=== PATIENT | female | born 1980 | race Caucasian/White ===

== ENCOUNTER 2017-07-17 10:23 | Inpatient (IN) | payer BC, OTHER ==
[~2017-07-17] VITALS: Ht 172.7 cm; Wt 54.4 kg
[2017-07-17] MEDS ORDERED: ONDANSETRON ODT 4 MG TAB.RAPDIS SL PRN (19:00)
[2017-07-17] MEDS ORDERED: MAG HYDROX/AL HYDROX/SIMETH 30 ML LIQUID UDC PO PRN (19:00)
[2017-07-17] MEDS ORDERED: THIAMINE HCL 200 MG/2 ML VIAL IM ONE (19:00)
[2017-07-17] MEDS ORDERED: LORAZEPAM 2 MG/1 ML VIAL IM PRN (19:00)
[2017-07-17] MEDS ORDERED: MAGNESIUM HYDROXIDE 30 ML LIQUID UDC PO PRN (19:00)
[2017-07-17] MEDS ORDERED: MIRALAX 17 GM POWD.PACK PO PRN (19:00)
[2017-07-17] MEDS ORDERED: CLONIDINE HCL 0.1 MG TABLET PO PRN (19:00)
[2017-07-17] MEDS ORDERED: ACETAMINOPHEN 325 MG TABLET PO PRN (19:00)
[2017-07-17] MEDS ORDERED: ONDANSETRON 4 MG/2 ML VIAL IM PRN (19:00)
[2017-07-17] MEDS ORDERED: IBUPROFEN 400 MG TABLET PO PRN (19:00)
[2017-07-17] MEDS ORDERED: DICYCLOMINE HCL 20 MG TABLET PO PRN (19:00)
[2017-07-17] MEDS ORDERED: LORAZEPAM 1 MG TABLET PO PRN (19:00)
[2017-07-17] MEDS ORDERED: LOPERAMIDE HCL 2 MG CAPSULE PO PRN ×2 (19:00)
--- NOTE | 2017-07-17 19:45 | NUR ---
INTAKE ASSESSMENT PT ASSESSED IN INTAKE.SHE IS A/A/O X 4.STATED THAT SHE IS HERE BECAUSE SHE WANTS TO STOP DRINKING ALCOHOL.PT HAS BEEN DRINKING WINE ON A DAILY BASIS FOR APPROXIMATELY 4 YEARS.HER LAST DRINK WAS 2 HOURS PRIOR TO ARRIVAL.PT PRESENTED WITH ANXIETY AND NERVOUSNESS.SAID THAT THIS IS HER FIRST TIME IN [place].B/P=130/92,HR=80,T=97.6,R=16,O2 SAT= 97%.SPEECH IS CLEAR,GAIT IS STEADY.PT IS IN A STABLE CONDITION TO PROCEED TO [facility].
[2017-07-17 19:57] LABS: BASOPHILS # (AUTO) 0.1 K/uL (0.0-8.0); BASOPHILS % (AUTO) 0.8 % (0.0-2.0); EOSINOPHILS # (AUTO) 0.2 K/uL (0.0-0.7); EOSINOPHILS % (AUTO) 3.2 % (0.0-7.0); HEMATOCRIT 41.2 % (31.2-41.9); LYMPHOCYTES # (AUTO) 3.3 K/uL (20.0-40.0); LYMPHOCYTES % (AUTO) 46.5 % (20.5-51.5); MEAN CORPUSCULAR HEMOGLOBIN 30.6 uug (24.7-32.8); MEAN CORPUSCULAR HGB CONC 34 g/dL (32.3-35.6); MONOCYTES # (AUTO) 0.6 K/uL (2.0-10.0); MONOCYTES % (AUTO) 8.7 % (0.0-11.0); NEUTROPHILS # (AUTO) 2.9 K/uL (1.8-8.9); NEUTROPHILS % (AUTO) 40.8 % (38.5-71.5); PLATELET COUNT (AUTO) 266 K/uL (179-408); RED BLOOD CELL COUNT(AUTO) 4.58 MIL/uL (3.63-4.92); WHITE BLOOD COUNT (AUTO) 7.1 K/uL (3.8-11.8)
[2017-07-17 20:13] LABS: BILIRUBIN,TOTAL 1.6 mg/dL (0.2-1.0); CREATININE 0.7 mg/dL (0.6-1.3); MAGNESIUM 2.2 mg/dL (1.8-2.4); POTASSIUM 4.3 mmol/L (3.5-5.1); TOTAL PROTEIN, SERUM 8.5 g/dL (6.4-8.2)
[2017-07-17] MEDS ORDERED: ESCI5TAB PO (20:25)
[2017-07-17] MEDS ORDERED: GABA-534 PO (20:26)
[2017-07-17] MEDS ORDERED: ZOLP10TA2 PO (20:27)
--- NOTE | 2017-07-17 21:00 | NUR ---
ADMISSION NOTE HT=5 FEET, 8 INCHES. ZW=253 POUNDS. B/P=132/98,T=97.9,P=82,R=16,O2 SAT=98%. CIWA = 15 NKDA/NKFA ADMITTING 36 YEAR OLD FEMALE TO [facility] FOR MEDICALLY SUPERVISED WITHDRAWAL FROM ALCOHOL UNDER THE CARE OF DR BARAJAS AND DR HARGROVE.PT REPORTED THAT SHE BEGAN DRINKING WINE AT THE AGE OF 14 YEARS BUT WAS NOT DRINKING REGULARLY.SHE WAS DRINKING OFF AND ON AND DID NOT DRINK AT ALL DURING HER THREE PREGNANCIES AND BREAST FEEDING.SHE BEGAN DRINKING MORE OFTEN PROGRESSIVELY DUE TO BEING STRESSED OUT RAISING HER 4 CHILDREN WITHOUT ANY HELP.SHE IS UNABLE TO GIVE A DEFINITE PERIOD OF BEING SOBER.SHE HAS BEEN DRINKING 750 TO 1500 MLS OF WINE ON A DAILY BASIS FOR APPROXIMATELY 4 YEARS,HER YOUNGEST TWIN SONS ARE 4 YEARS OLD.SHE LIVES IN [place] WITH HER FAMILY.SHE HAS 4 CHILDREN,AGES 12,9 AND 4. PT DENIES ANY ALLERGIES OR MEDICAL PROBLEMS.SHE HAS HX OF ANXIETY AND INSOMNIA.TAKES AMBIEN FOR INSOMNIA.PT ALSO STATED SHE HAD A SEIZURE ONLY ONE TIME AND THAT WAS 7 YEARS AGO. PT IS A/A/O X 4.SKIN IS INTACT,WARM AND DRY TO TOUCH;BREATHING IS EVEN AND NON LABORED;NO S/S OF SOB NOTED.ABDOMEN IS SOFT AND PALPABLE WITH B/S PRESENT X 4.NO C/O N/V/D NOTED.PT DENIES ANY A/H,V/H,S/I OR H/I.PT ORIENTED TO ROOM AND UNIT,CARE PLAN AND SAFETY CHECKS INITIATED.SNACK AND FLUIDS PROVIDED.PT ENCOURAGED TO INCREASE PO FLUIDS TOLERATED.EDUCATION MATERIAL PROVIDED.ALL SAFETY MEASURES ARE IN PLACE PER HOSPITAL POLICY,BED IS LOCKED IN THE LOWEST POSITION WITH SIDE RAILS UP AND PADDED X 2.PT STATED THAT THIS IS HER FIRST TIME IN [place].HER PCP IS DR MARIBELL FRASER.'S NOTIFIED OF ADMISSION.WILL CONTINUE TO MONITOR FOR SAFETY AND MEDICATE PER ORDERS.
[2017-07-17 21:16] LABS: *URINE HCG, QUAL NEGATIVE (NEGATIVE)
[2017-07-17 21:29] LABS: *AMPHETAMINE, URINE NEGATIVE (NEGATIVE); *BARBITURATE, URINE NEGATIVE (NEGATIVE); *CANNABINOID, URINE NEGATIVE (NEGATIVE); *COCCAINE, URINE NEGATIVE (NEGATIVE); *OPIATE, URINE NEGATIVE (NEGATIVE); *PHENCYCLIDINE SCREEN,URINE NEGATIVE (NEGATIVE)
[2017-07-17] MEDS ORDERED: LORAZEPAM 1 MG TABLET PO SCH (22:00)
--- NOTE | 2017-07-17 22:30 | NUR ---
PEPE BENADRYL IS EFFECTIVE.PT IS SLEEPING AT THIS TIME.BREATHING IS EVEN AND NON LABORED,NO S/S OF DISTRESS NOTED. Addendum: 07/18/17 at 0206 by JUNIE DÍAZ RN CHARTING ERROR.
[2017-07-17] MEDS: diphenhydrAMINE 50 MG CAPSULE PO PRN (22:32)
--- NOTE | 2017-07-17 22:32 | NUR ---
PRN BENADRYL GIVEN FOR C/O INSOMNIA.WILL MONITOR.
[2017-07-17] MEDS ORDERED: THIAMINE HCL 200 MG/2 ML VIAL ONE (23:11)
--- NOTE | 2017-07-17 23:30 | NUR ---
PRN BENADRYL IS EFFECTIVE.PT IS SLEEPING AT THIS TIME.BREATHING IS EVEN AND NON LABORED,NO S/S OF DISTRESS NOTED.
[2017-07-18] VITALS: BP 120/89
--- NOTE | 2017-07-18 | NUR ---
CIWA ASSESSMENT DEFERRED DUE TO PT BEING ASLEEP.BREATHING IS EVEN AND NONLABORED.ALL SAFETY MEASURES IN PLACE WITH CALL LIGHT WITHIN REACH,WILL CONTINUE TO MONITOR.
[2017-07-18] MEDS: LORAZEPAM 1 MG TABLET PO PRN ×2 (00:56→18:35)
--- NOTE | 2017-07-18 00:58 | NUR ---
PRN ATIVAN 1 MG PO GIVEN FOR CIWA 7.WILL MONITOR FOR EFFECTIVENESS.
--- NOTE | 2017-07-18 02:00 | NUR ---
PRN REASSESSMENT UNABLE TO ASSESS FOR CIWA AT THIS TIME DUE TO PT BEING ASLEEP.WILL CONTINUE TO MONITOR.
[2017-07-18 04:00] VITALS: BP 115/84
--- NOTE | 2017-07-18 04:00 | NUR ---
CIWA DEFERRED CIWA ASSESSMENT DEFERRED DUE TO PT BEING ASLEEP.BREATHING IS EVEN AND NONLABORED.ALL SAFETY MEASURES IN PLACE WITH CALL LIGHT WITHIN REACH,WILL CONTINUE TO MONITOR.
--- NOTE | 2017-07-18 06:47 | NUR ---
END OF SHIFT PT IS 36 YEAR OLD FEMALE ADMITTED TO [facility] FOR MEDICALLY SUPERVISED WITHDRAWAL FROM ALCOHOL .SHE HAS BEEN DRINKING 750 TO 1500 MLS OF WINE ON A DAILY BASIS FOR APPROXIMATELY 4 YEARS.NKA,FULL CODE,REGULAR DIET.SHE HAS HX OF ANXIETY AND INSOMNIA.PT ALSO STATED SHE HAD A SEIZURE ONLY ONE TIME AND THAT WAS 7 YEARS AGO.PLACED ON FALL AND SEIZURE PRECAUTIONS.PT IS A/A/O X 4.ALL SAFETY MEASURES ARE IN PLACE PER HOSPITAL POLICY,BED IS LOCKED IN THE LOWEST POSITION WITH SIDE RAILS UP AND PADDED X 2.PRN BENADRYL AND ATIVAN WERE GIVEN AND WERE EFFECTIVE.CIWA ON ADMISSION WAS 15 AND LAST CIWA AT 0100 WAS 7.PT SLEPT 5 HRS,FLUID INTAKE WAS 500 MLS,VOIDED X 1 .WILL ENDORSE CARE TO DAY SHIFT NURSE.
--- NOTE | 2017-07-18 07:57 | NUR ---
START OF SHIFT Received report from night nurse, 36 year old female admitted for ETOH withdrawal. Patient cont with 4 days Ativan taper tolerating well. Per endorsement patient was given PRN Ativan 1mg and Benadryl effective per night nurse, slept for 5 hours, Last CIWA score was-7. Received patient anxious agitated, nauseated, restless. Patient stated "I am not feeling well my anxiety level is so high" Patient is due for schedule medications. Educated patient with current plan of care of medications regimen and importance of attending groups and activities with good verbal understanding. Safety measures in place. Will cont with plan of care.
[2017-07-18 08:00] VITALS: BP 115/81
[2017-07-18] MEDS: MULTIVITAMINS,THERAPEUTIC TABLET PO SCH (08:25)
[2017-07-18] MEDS: THIAMINE HCL 100 MG TABLET PO SCH (08:25)
[2017-07-18] MEDS: LORAZEPAM 1 MG TABLET PO SCH ×3 (08:25→20:49)
[2017-07-18] MEDS: FOLIC ACID 1 MG TABLET PO SCH (08:25)
[2017-07-18] MEDS ORDERED: TUBERCULIN,PURIF.PROT.DERIV. 5 TU/0.1 ML TEST ID ONE (09:00)
[2017-07-18] MEDS: ESCITALOPRAM OXALATE 10 MG TABLET PO SCH (09:34)
[2017-07-18] MEDS: GABAPENTIN 300MG CAPSULE PO SCH ×3 (10:05→20:49)
[2017-07-18 12:00] VITALS: BP 118/75
[2017-07-18 16:00] VITALS: BP 129/88
--- NOTE | 2017-07-18 18:35 | NUR ---
PRN ATIVAN CIWA score noted -10, patient reported increased anxiety, agitation, restless, light headed, bilateral hand tremors, sweats. PRN Ativan 1mg PO given as ordered. Will cont to monitor and reassess.
--- NOTE | 2017-07-18 19:05 | NUR ---
END OF SHIFT NOTE Gave report to night nurse, patient presented with anxiety, agitation, tremors, light headed, nausea. Patient was given scheduled medications. Patient also received PRN Ativan 1mg PO endorsed to night nurse to reassess the patient. Patient compliant with treatment and medications. Patient was seen by psychiatrist with new order to give Lexapro medication given as ordered patient tolerated well. Vital signs WNL. Encourage pt to develop coping skills and utilization of non pharmacological intervention. Patient attended groups and activities. Encourage diversional activities to alleviate anxiety. Patient denies any SI/HI. Safety measures in place. Patient endorsed to night nurse in stable condition.
--- NOTE | 2017-07-18 19:30 | NUR ---
START OF SHIFT PT IS 36 YEAR OLD FEMALE ADMITTED TO [facility] FOR MEDICALLY SUPERVISED WITHDRAWAL FROM ALCOHOL.PER REPORT PT WAS GIVEN ATIVAN 1 MG PO FOR ANXIETY.PT RECEIVED IN ROOM,SAID THAT ATIVAN IS HELPING HER FEEL RELAXED.STATES FEELING BETTER.PT IS A/A/O X 4.SHE IS PLEASANT ON APPROACH,ROOM IS CLEAN OF CLUTTER.ALL SAFETY MEASURES ARE IN PLACE PER HOSPITAL POLICY,BED IS LOCKED IN THE LOWEST POSITION WITH SIDE RAILS UP AND PADDED X 2.CONTINUES TO BE MONITORED FOR FALL/SEIZURE PRECAUTIONS.PT IS COOPERATIVE WITH MEDICATION REGIME.NO C/O PAIN NOTED.ILL CONTINUE TO MONITOR.
[2017-07-18 20:00] VITALS: BP 115/78
[2017-07-18] MEDS: diphenhydrAMINE 50 MG CAPSULE PO PRN (20:49)
--- NOTE | 2017-07-18 20:49 | NUR ---
PRN BENADRYL GIVEN ORDERED FOR C/O INSOMNIA.WILL MONITOR.
--- NOTE | 2017-07-18 21:50 | NUR ---
PRN BENADRYL IS EFFECTIVE.PT IS RESTING IN BED WITH EYES CLOSED,IN DEEP SLEEP.BREATHING IS EVEN AND NON LABORED,ALL SAFETY MEASURES IN PLACE,CALL LIGHT WITHIN REACH.WILL CONTINUE TO MONITOR.
[2017-07-19] VITALS: BP 116/75
--- NOTE | 2017-07-19 | NUR ---
CIWA DEFERRED DUE TO PT TERESITA IN DEEP SLEEP.UNABLE TO ASSESS AT THIS TIME.
[2017-07-19] MEDS: LORAZEPAM 1 MG TABLET PO PRN (01:20)
--- NOTE | 2017-07-19 01:21 | NUR ---
PRN ATIVAN 1 MG PO GIVEN FOR INCREASED ANXIETY,RESTLESSNESS,UNABLE TO GO BACK TO SLEEP.CIWA=6.WILL MONITOR FOR EFFECTIVENESS.
--- NOTE | 2017-07-19 02:20 | NUR ---
PRN MED IS EFFECTIVE.PT IS CALM AND RESTING WITH EYES CLOSED.
--- NOTE | 2017-07-19 04:00 | NUR ---
V/S REFUSED; CIWA DEFERRED. PT HAD REQUESTED EARLIER NOT TO BE WOKEN UP FOR V/S.PT OBSERVED TO BE RESTING IN DEEP SLEEP.BREATHING IS EVEN AND NON LABORED,NO S/S OF DISTRESS NOTED.CIWA DEFERRED D/T PT BEING ASLEEP. SAFETY MEASURES IN PLACE,CALL LIGHT WITHIN REACH.WILL BE MONITORED.
--- NOTE | 2017-07-19 06:40 | NUR ---
END OF SHIFT PT IS 36 YEAR OLD FEMALE ADMITTED TO [facility] FOR MEDICALLY SUPERVISED WITHDRAWAL FROM ALCOHOL. PT IS A/A/O X 4.SHE IS PLEASANT ON APPROACH,ROOM IS CLEAN OF CLUTTER.ALL SAFETY MEASURES ARE IN PLACE PER HOSPITAL POLICY,BED IS LOCKED IN THE LOWEST POSITION WITH SIDE RAILS UP AND PADDED X 2.CONTINUES TO BE MONITORED FOR FALL/SEIZURE PRECAUTIONS.PT IS COOPERATIVE WITH MEDICATION REGIME.PRN BENADRYL AND ATIVAN WERE GIVEN AND WERE EFFECTIVE. LAST CIWA WAS 6.PT SLEPT 8 HRS,FLUID INTAKE WAS 1000 MLS,VOIDED X 1, B/M X 1. NO C/O PAIN NOTED.PT ENDORSED TO DAY SHIFT NURSE IN A STABLE CONDITION.
--- NOTE | 2017-07-19 07:34 | NUR ---
Start of shift note; Received report from night nurse. Patient is a 36 year old female admitted on 07/17/17 for ETOH withdrawals. Patient was started on Ativan taper, tolerating well. Patient presented with agitation, complaining of hot and cold sweats, tremors noted, and stomach cramps. Educated patient regarding the importance of compliance to treatment and medication regime, patient verbalized understanding. Encouraged patient to participate in group therapy and activities. All safety measures secured. Will continue to monitor patient.
[2017-07-19 08:00] VITALS: BP 125/83
[2017-07-19] MEDS: MULTIVITAMINS,THERAPEUTIC TABLET PO SCH (08:39)
[2017-07-19] MEDS: THIAMINE HCL 100 MG TABLET PO SCH (08:39)
[2017-07-19] MEDS: LORAZEPAM 1 MG TABLET PO SCH ×3 (08:39→20:12)
[2017-07-19] MEDS: FOLIC ACID 1 MG TABLET PO SCH (08:39)
[2017-07-19] MEDS: GABAPENTIN 300MG CAPSULE PO SCH ×3 (08:40→20:11)
[2017-07-19] MEDS: ESCITALOPRAM OXALATE 10 MG TABLET PO SCH (08:40)
[2017-07-19 12:00] VITALS: BP 130/82
[2017-07-19 12:07] LABS: HEPATITIS B SURFACE AG Negative (Negative)
[2017-07-19 16:00] VITALS: BP 103/70
[2017-07-19] MEDS ORDERED: DIPH50CA37 PO (16:24)
[2017-07-19] MEDS ORDERED: CLON0.1T14 PO (16:24)
[2017-07-19] MEDS ORDERED: IBUP-1953 PO (16:24)
--- NOTE | 2017-07-19 18:48 | NUR ---
End of shift note; Patient is AOX4. Patient remained compliant with treatment plan and medication regime. Medications noted to be effective in reducing withdrawal symptoms. Patient's last CIWA score is 7. Patient received PRN Clonidine today for elevated BP. Patient is medically cleared for discharge tomorrow per MD. All safety measures secured. Met all needs.
--- NOTE | 2017-07-19 19:30 | NUR ---
Start of Shift Pt is a 36 y/o female admitted 07/17/17 for medically managed withdrawal/detox from ETOH (750-1500mls/day). Pt is found in bed, supine with hob elevated 45 degrees. Able to answer questions and respond appropriately. Pt states plans to go to rehab ([facility] following day. 12 step meetings in her area discussed and encouraged. Will administer 2100 meds with Benedryl 50mg PO per pt request, monitor and promptly attend to all pt needs.
[2017-07-19 20:00] VITALS: BP 120/82
[2017-07-19] MEDS: diphenhydrAMINE 50 MG CAPSULE PO PRN (20:12)
--- NOTE | 2017-07-19 20:12 | NUR ---
PRE Med Benedryl 50mg PO given for insomnia with 2100 meds. Will continue to monitor, reassessing in 1 hour, and promptly attend to all pt needs
--- NOTE | 2017-07-19 21:12 | NUR ---
PRN Med Reassessment Benedryl 50mg PO given 2011 for insomnia. Currently Pt still awake, watching TV, with c/o insomnia. Encouraged to eat something without sugar or caffeine, practice relaxation techniques such as imagary. Will continue to monitor and promptly attend to all pt needs
--- NOTE | 2017-07-19 21:42 | NUR ---
Clonidine 0.1mg PO given for BP. SBP 143. Pt anxious and agitated r/t insomnia. Will continue to monitor, reassessing in 1 hour, promptly attending to all pt needs.
--- NOTE | 2017-07-19 22:42 | NUR ---
PRN Med Reassessment Clonidine 0.1mg PO given 2141 for BP 143/88. At present BP 134/85. Med effective. Pt remains agitated/frustrated that she hasnt fallen asleep yet. Imagary, Food (turkey, warm milk), TV on with volume low suggested. Will continue to monitor and promptly attend to all pt needs
[2017-07-20] VITALS: BP 112/74
--- NOTE | 2017-07-20 00:10 | NUR ---
Insomnia Pt presents with continued c/o insomnia. Choices offered and "warm milk" chosen by pt. Will continue to monitor and offer choices, promptly attending to all pt needs.
--- NOTE | 2017-07-20 04:00 | NUR ---
0400 VS's CIWA Deferred 0400 VS's and CIWA deferred r/t pt sleeping/refusal. RR 14, even and non-labored. Will continue to monitor, promptly attending to all needs.
--- NOTE | 2017-07-20 06:48 | NUR ---
End of Shift Pt is a 36 y/o female admitted 07/17/17 for medically managed withdrawal/detox from ETOH (750-1500mls/day). PRN meds for shift include Benedryl 50mg PO for insomnia and Clonidine 0.1mg PO for SBP 143, both in evening. Midnight VS's and CIWA (7) performed, continued c/o insomnia-warm milk agreeable to pt. VS's and CIWA deferred for 0400 hours r/t pt sleeping/refused. Pt slept for 3 hours, with 440 mls intake, 3 voids, 0 BM's. Will continue to monitor, give endorsement to oncoming nurse, and promptly attend to all pt needs.
--- NOTE | 2017-07-20 07:05 | NUR ---
Start Of Shift Report received from security shift supervisor nurse Pt is a 36 y/o female admitted 07/17/17 for medically managed withdrawal/detox from ETOH. Pt completed her 4 day Ativan taper, tolerated well. Pt is to be discharged today. Per security shift supervisor nurse pts last CIWA was a 7. Pt received PRN Benadryl and clonidine for anxiety and insomnia last night, medications effective per security shift supervisor nurse, pt slept for 5 hours last night. Encouraged pt to drink plenty of fluids to help facilitate with detox process. Upon start of shift pt was laying in bed watching TV, hen greeted pt stated "I Feel much better today, Im a bit anxious about the discharge but good overall". During assessment, pt is AOx4. Lung sounds clear bilaterally. Radial pulse is regular and non-bounding. Abdomen soft and non-tender. Abdominal sounds __ x4 quadrants.Bed in lowest position. Side rails up x2. Call light functioning and within reach. All needs attended and met. Will continue to monitor.
[2017-07-20 08:00] VITALS: BP 129/81
[2017-07-20] MEDS: GABAPENTIN 300MG CAPSULE PO SCH (08:52)
[2017-07-20] MEDS: FOLIC ACID 1 MG TABLET PO SCH (08:52)
[2017-07-20] MEDS: MULTIVITAMINS,THERAPEUTIC TABLET PO SCH (08:52)
[2017-07-20] MEDS: THIAMINE HCL 100 MG TABLET PO SCH (08:52)
[2017-07-20] MEDS: ESCITALOPRAM OXALATE 10 MG TABLET PO SCH (08:53)
[2017-07-20] MEDS ORDERED: LORAZEPAM 1 MG TABLET PO SCH (09:00)
--- NOTE | 2017-07-20 09:40 | NUR ---
Discharge note Pt was discharged from [facility], pt provided all the discharge paperwork, all paperwork explained pt verbalized understanding, Pt is A&Ox4 vitals WNL, pt denies any SI/HI. all belongings returned to pt, all home medication brought up and given to pt. Pt left facility at 0937 07/20/17.
[2017-07-21] MEDS ORDERED: LORAZEPAM 1 MG TABLET PO SCH (09:00)
== END 2017-07-20 09:37 | disposition other institution (70) | DRG 895 ==
LOC: SRC 18:49
PROVIDERS: ADMIT Internal Medicine; ATTEND Internal Medicine
PROC: HZ2ZZZZ Detoxification Services for Substance Abuse Treatment (ICD-10-PCS; principal; 2017-07-17)
PROC: HZ41ZZZ Group Counseling for Substance Abuse Treatment, Behavioral (ICD-10-PCS; 2017-07-18)
DX: F10.230 Alcohol dependence with withdrawal, uncomplicated (principal); K70.10 Alcoholic hepatitis without ascites; F13.20 Sedative, hypnotic or anxiolytic dependence, uncomplicated; F33.1 Major depressive disorder, recurrent, moderate; Y90.7 Blood alcohol level of 200-239 mg/100 ml; F41.9 Anxiety disorder, unspecified; G47.00 Insomnia, unspecified; Z81.1 Family history of alcohol abuse and dependence; Z79.899 Other long term (current) drug therapy
CPT/HCPCS: 36415; 70030-TC; 80307; 83735; 84703; 85025; 86580; 86592; 86705; 86803; 87340; 87806; G0480; J3411; Q0163